=== PATIENT | female | born 1960 | race Caucasian/White ===

== ENCOUNTER 2018-06-06 20:19 | Emergency (ER) | payer OTHER, SELFPAY ==
--- NOTE | 2018-06-06 20:28 | ED_ITS ---
HPI - Syncope General Chief Complaint: Syncope Stated Complaint: Syncope Time Seen by Provider: 06/06/18 20:21 Source: patient and EMS Mode of arrival: EMS Limitations: no limitations History of Present Illness HPI narrative: 58-year-old healthy female presents by EMS for evaluation of 2 syncopal episodes today. Under both circumstances it was and changing position from a seated to standing. On arrival EMS found her blood pressure to be 100/ 60 while seated with a dropped to 70/48 while standing, patient became quite symptomatic. She denies any recent illness such as nausea, vomiting or diarrhea. She denies runny nose, sore throat or cough. She has had no fever or chills. She denies abdominal pain or any vaginal bleeding. She has no new medications, herbal supplements or dietary change. She denies recent travel, history of blood clot or history of cancer. She denies any unplanned weight loss. She drinks a significant amount of caffeine and was drinking alcohol with friends today, she states she tries to drink enough water and normally does. MD complaint: loss of consciousness Onset (ago): minute(s) Prodromal symptoms: vision changes and lightheaded Witnessed: yes - by bystander Context: standing up Injuries sustained associated with event: none Current symptoms: none Treatments prior to arrival: IV fluids Review of Systems Review of Systems All systems reviewed & are unremarkable except as noted in HPI and below Constitutional Denies chills, Denies fever(s), Denies lethargy and Denies weakness Eyes Denies change in vision, Denies eye discharge, Denies irritation and Denies loss of vision ENT Ears, Nose, Mouth, and Throat: Denies change in voice, Denies neck pain and Denies sore throat Cardiovascular Denies chest pain, Reports syncope, Denies irregular heart rhythm, Denies lightheadedness, Denies palpitations, Denies dyspnea, Denies dyspnea on exertion and Denies orthopnea Respiratory Denies cough, Denies dyspnea, Denies dyspnea on exertion and Denies wheezing Gastrointestinal Gastrointestinal: Denies abdominal pain, Denies change in bowel habits, Denies diarrhea, Denies nausea and Denies vomiting Genitourinary Denies hematuria, Denies flank pain, Denies urinary incontinence and Denies urinary urgency Musculoskeletal Denies neck pain Integumentary/Breasts Denies pruritus, Denies erythema, Denies rash and Denies wounds Neurologic Denies confusion, Reports syncope, Denies loss of vision and Denies weakness Psychiatric Denies anxiety, Denies confusion, Denies depression, Denies homicidal ideation and Denies suicidal ideation Endocrine Denies palpitations Hematologic/Lymphatic Denies easy bruising Allergic/Immunologic Denies wheezing PFSH Social History Smoking Status: Never smoker alcohol intake: current Exam Narrative Exam Narrative: Pleasant 58-year-old female resting comfortably Initial Vital Signs Initial Vital Signs: Vital Signs Temperature 97.9 F 06/06/18 20:31 Pulse Rate 72 06/06/18 20:31 Respiratory Rate 18 06/06/18 20:31 Blood Pressure 126/69 H 06/06/18 20:31 Pulse Oximetry 98 06/06/18 20:31 Const General: cooperative and well developed Nutritional Appearance: well nourished Orientation: alert, awake, oriented x3 and not confused HENMT Head: normocephalic and atraumatic Ears: external ears normal and TM's normal bilaterally Nose: external nose normal and No nasal discharge Face and sinus: sinuses nontender, face symmetric, no sinus tenderness and No dry mucous membranes Mouth: oral mucosae normal and moist mucous membranes Teeth and gingiva: dentition normal Throat: tonsils normal and uvula midline Eyes General: appearance normal, both eyes and all related structures Eyelids: eyelids normal Conjunctivae: conjunctivae normal Sclera: sclerae normal Pupils: PERRL EOM: EOM intact bilaterally Neck Neck: normal visual inspection, trachea midline, No lymphadenopathy, No midline deformity and No JVD Lymphatic: No lymphedema Chest Chest: normal inspection of the chest Resp Effort & Inspection: normal respiratory effort, able to speak in complete sentences, no respiratory distress and no use of accessory muscles Auscultation: clear to auscultation bilaterally, no rales, no rhonchi and no wheezes Cardio Rate: regular rate Rhythm: regular rhythm Heart Sounds: no click, no gallops, no murmurs and no rubs Pulses: normal peripheral pulses GI Inspection: non-distended Palpation: soft, no hepatosplenomegaly, No guarding, No pulsatile mass and No tender Auscultation: normal bowel sounds Back/Spine/Pelvis Back: No CVA tenderness Cervical Spine: cervical ROM normal and No pain with cervical ROM Thoracic/Lumbar Spine: thoracic and lumbar spine normal to inspection Skin General: no rashes or lesions noted, No jaundice and No petechiae Neuro General: alert, oriented x3, gait normal and no focal motor deficits Speech: speech normal Extrem General: full ROM, no clubbing, cyanosis or edema, no pedal edema and no calf tenderness Psych Appearance: well kempt Mental Status: mental status grossly normal Attitude: cooperative Thought Content: normal and suicidality Judgment: judgment good Course Orders Ordered: ED Orders 06/06/18 20:15 Complete Blood Count AUTO DIFF Stat Comprehensive Metabolic Panel Stat Ethanol (ETOH) Stat Troponin & CK Cardiac Panel Stat 06/06/18 20:25 EKG-12 Lead Stat Discontinued Medications Sodium Chloride (Normal Saline 0.9%) 1,000 mls @ 1,000 mls/hr IV BOLUS ONE Stop: 06/06/18 21:24 Last Infusion: 06/06/18 23:00 Dose: 0 mls/hr Admin: 06/06/18 21:15 Dose: 1,000 mls/hr Vital Signs - 8 hr 06/06/18 21:44 06/06/18 22:50 06/06/18 22:51 Pulse Rate 78 90 87 Respiratory Rate 18 Blood Pressure [Left Arm] 114/60 124/60 H 136/73 H Pulse Oximetry 97 06/06/18 23:12 Pulse Rate 94 H Respiratory Rate 15 Blood Pressure [Left Arm] 123/63 H Pulse Oximetry 98 MDM - Syncope Differential Diagnosis Likely syncope due to orthostatic hypotension, vasovagal syncope, complete atrioventricular block, pulmonary embolism and dehydration Lab Data Attestation: I reviewed the patient's lab results. Result diagrams: 06/06/18 20:15 06/06/18 20:15 Lab Results 06/06/18 06/06/18 Range/Units 20:15 20:15 WBC 7.8 (4.5-11.0) X10^3/uL RBC 4.32 (4.0-5.2) X10^6/uL Hgb 13.2 (12.0-16.0) g/dL Hct 38.3 (36-46) % MCV 88.5 (80-100) fL MCH 30.6 (26-34) PG MCHC 34.6 (30-36) % RDW 13.4 (11.6-14.8) % Plt Count 365 (150-400) X10^3/uL Neut % (Auto) 41.4 L (50-75) % Lymph % (Auto) 46.0 H (25-40) % [place] % (Auto) 7.8 (3-14) % Eos % (Auto) 4.3 H (2-4) % Baso % (Auto) 0.5 (0-2) % Neut # (Auto) 3200 (2132-4574) /uL Sodium 138 (137-145) mmol/L Potassium 3.3 L (3.4-5.1) mmol/L Chloride 100 (98-107) mmol/L Carbon Dioxide 24 (22-32) mmol/L BUN 15 (7-17) mg/dL Creatinine 0.90 (0.52-1.04) mg/dL Estimated GFR > 60.0 (>60) mL/min BUN/Creatinine Ratio 16.7 (6-22) Glucose 98 (70-100) mg/dL Calcium 9.6 (8.4-10.2) mg/dL Total Bilirubin 0.4 (0.2-1.3) mg/dL AST 41 H (14-36) IU/L ALT 36 (9-52) IU/L Alkaline Phosphatase 66 (38-126) U/L Total Creatine Kinase 117 (30-135) U/L CK-MB (CK-2) 0.79 (<2.37) ng/mL CK-MB (CK-2) Rel Index 0.7 L (1.5-5.0) % Troponin I < 0.012 (0.01-0.034) ng/mL Total Protein 7.5 (6.3-8.2) g/dL Albumin 4.8 (3.5-5.0) g/dL Globulin 2.7 (1.7-4.1) g/dL Albumin/Globulin Ratio 1.8 (1.0-2.8) Ethyl Alcohol 21 mg/dL [facility] Narrative Medical decision making narrative: 58-year-old female presents with a syncopal episode in the setting of a low blood pressure with change in position. She patient was given a few L of fluid able to ambulate through the department without any difficulty and remains asymptomatic. Discharge Plan Departure Patient Disposition: Home, Self-Care Clinical Impression: Syncope due to orthostatic hypotension, Dehydration Discharge Date/Time: 06/06/18 23:51 Interventions: ED Discharge Assessment Last Done: 06/06/18 23:49 Instructions: DI for Syncope in Adults (Fainting) Activity Restrictions/Additional Instructions: *You have been diagnosed with [ fainting ] *What to do: *Take medications as directed *Follow up with your primary care provider in 2-3 days, call for an appointment. Let them know you were seen in the Emergency Department and that we ask that you be seen in follow up *Return to ER if you should have any new, worsening or concerning symptoms , such as [ recurrence of symptoms, chest pain, shortness of breath or other bothersome symptoms] Referrals: Silverio Garcia MD [Primary Care Provider] - William Oliveira MD [Physician] - Tonja Taveras MD [Physician] - Christina Dobson MD [Physician] -
[2018-06-06 20:31] VITALS: BP 126/69; PULSE 72; RESP 18; TEMP 36.6; O2SAT 98; BMI 22.3
[2018-06-06 20:32] LABS: Add Manual Diff / Slide Review NO; Basophils Percent Auto 0.5 % (0-2); Eosinophils Percent Auto 4.3 % (2-4); Hematocrit 38.3 % (36-46); Hemoglobin 13.2 g/dL (12.0-16.0); Mean Corpuscular HGB Conc 34.6 % (30-36); Mean Corpuscular Hemoglobin 30.6 PG (26-34); Mean Corpuscular Volume 88.5 fL (80-100); Monocytes Percent Auto 7.8 % (3-14); Neutrophils Absolute Auto 3200 /uL (3000-5900); Neutrophils Percent Auto 41.4 % (50-75); Platelet Count 365 X10^3/uL (150-400); Red Blood Cell Count 4.32 X10^6/uL (4.0-5.2); Red Cell Distribution Width 13.4 % (11.6-14.8); White Blood Cell Count 7.8 X10^3/uL (4.5-11.0)
[2018-06-06 20:53] LABS: Alanine Aminotransferase 36 IU/L (9-52); Albumin 4.8 g/dL (3.5-5.0); Albumin Globulin Ratio 1.8 (1.0-2.8); Alkaline Phosphatase 66 U/L (38-126); Aspartate Aminotransferase 41 IU/L (14-36); BUN Creatinine Ratio 16.7 (6-22); Bilirubin Total 0.4 mg/dL (0.2-1.3); Blood Urea Nitrogen 15 mg/dL (7-17); Calcium 9.6 mg/dL (8.4-10.2); Carbon Dioxide 24 mmol/L (22-32); Chloride 100 mmol/L (98-107); Creatine Kinase 117 U/L (30-135); Estimated Glomerular Filt Rate > 60.0 mL/min (>60); Globulin 2.7 g/dL (1.7-4.1); Glucose 98 mg/dL (70-100); HEMOLYSIS < 15 (0-50); Potassium 3.3 mmol/L (3.4-5.1); Sodium 138 mmol/L (137-145); Total Protein 7.5 g/dL (6.3-8.2)
[2018-06-06 21:02] LABS: Ethanol (ETOH) 21 mg/dL
[2018-06-06 21:06] LABS: Troponin I < 0.012 ng/mL (0.01-0.034)
[2018-06-06 21:08] LABS: CKMB % Relative Index 0.7 % (1.5-5.0); Creatine Kinase MB 0.79 ng/mL (<2.37)
[2018-06-06] MEDS: SODIUM CHLORIDE 0.9% 1,000 ML 1000 ML IV (21:15)
[2018-06-06 21:44] VITALS: BP 114/60; PULSE 78; RESP 18; O2SAT 97
[2018-06-06 22:50] VITALS: BP 124/60; PULSE 90
[2018-06-06 22:51] VITALS: BP 133/69; BP 136/73; PULSE 87; PULSE 89
[2018-06-06 23:12] VITALS: BP 123/63; PULSE 94; RESP 15; O2SAT 98
== END 2018-06-06 23:51 | disposition home or self-care (01) ==
PROVIDERS: Emergency Provider Emergency Medicine; Family Provider Nurse Practitioner Family; PCP Family Medicine
DX: I95.1 Orthostatic hypotension (principal); E86.0 Dehydration
CPT/HCPCS: 80053; 80320; 82550; 82553; 84484; 85025; 93005; 96360; 96361; 99283; 99284

== ENCOUNTER → 2018-06-10 16:41 | Outpatient (CLI) | payer OTHER, SELFPAY ==
--- NOTE | 2018-06-10 16:45 | DI.RAD.S_ITS ---
PROCEDURE: XR CERVICAL SPINE 2V OR 3V INDICATIONS: NECK PAIN TECHNIQUE: 3 view(s) of the cervical spine were acquired. COMPARISON: None. FINDINGS: Bones: No fractures or dislocations to the C7 level. The lateral masses of C1 appear intact on the odontoid view. No suspicious bony lesions. There is multilevel disc narrowing C3-T1. Atrophic changes in the lateral masses and uncovertebral joints bilaterally below C3. Soft tissues: No prevertebral soft tissue swelling. IMPRESSION: 1. Normal lordosis. Multilevel disc degeneration and bony spondylosis. Dictated by: Del Pal M.D. on 06/11/2018 at 8:34 Approved by: Del Pal M.D. on 06/11/2018 at 8:35
== END ==
PROVIDERS: PCP Family Medicine; Visit Provider Nurse Practitioner Family
DX: M50.31 Other cervical disc degeneration, high cervical region (principal); M47.812 Spondylosis without myelopathy or radiculopathy, cervical region
CPT/HCPCS: 72040

== ENCOUNTER → 2019-02-10 15:20 | Outpatient (CLI) | payer OTHER, SELFPAY ==
--- NOTE | 2019-02-10 | DI.MG.S_ITS ---
BILATERAL DIGITAL SCREENING MAMMOGRAM 3D/2D WITH CAD: 02/10/2019 CLINICAL: Routine screening. Family history of breast cancer. Comparison is made to exams dated: 12/18/2017 mammogram, 12/10/2016 mammogram, and 01/04/2015 mammogram - [facility]. The tissue of both breasts is heterogeneously dense. This may lower the sensitivity of mammography. Current study was also evaluated with a Computer Aided Detection (CAD) system. No significant masses, calcifications, or other findings are seen in either breast. There has been no significant interval change. IMPRESSION: NEGATIVE There is no mammographic evidence of malignancy. A 1 year screening mammogram is recommended. This exam was interpreted at Station ID: [id number]. NOTE: For mammograms, a report in lay terms will be sent to the patient. Approximately 15% of breast malignancies will not be visualized mammographically. In the management of a palpable breast mass, a negative mammogram must not discourage biopsy of a clinically suspicious lesion. Electronically Signed By: Laurent marshall/vishal:02/10/2019 18:56:57 letter sent: Normal Exam ACR BI-RADS Category 1: Negative [id number]
== END ==
PROVIDERS: PCP Nurse Practitioner Family; Visit Provider Nurse Practitioner Family
DX: Z12.31 Encounter for screening mammogram for malignant neoplasm of breast (principal); Z80.3 Family history of malignant neoplasm of breast
CPT/HCPCS: 77063; 77067

== ENCOUNTER → 2019-05-18 14:55 | Outpatient (CLI) | payer OTHER, SELFPAY ==
--- NOTE | 2019-05-18 | DI.RAD.S_ITS ---
PROCEDURE: XR CERVICAL SPINE 2V OR 3V INDICATIONS: NECK PAIN TECHNIQUE: 3 view(s) of the cervical spine were acquired. COMPARISON: [facility], CR, XR CERVICAL SPINE 2V OR 3V, 06/10/2018, 16:35. FINDINGS: Bones: No fractures or dislocations to the T1 level. The lateral masses of C1 appear intact on the odontoid view. No suspicious bony lesions. Multilevel degenerative endplate sclerosis and spurring. Diffuse facet arthropathy. Straightening of the normal lordotic curvature. Diffuse mild to moderate narrowing of the cervical disc spaces. Soft tissues: No prevertebral soft tissue swelling. IMPRESSION: Diffuse [id number] cervical spondylosis grossly unchanged since 06/10/18. Dictated by: Ramírez Garg M.D. on 05/18/2019 at 16:08 Approved by: Ramírez Garg M.D. on 05/18/2019 at 16:09
== END ==
PROVIDERS: PCP Nurse Practitioner Family; Visit Provider Family Medicine
DX: M47.892 Other spondylosis, cervical region (principal)
CPT/HCPCS: 72040

== ENCOUNTER → 2019-09-29 13:13 | Outpatient (CLI) | payer OTHER, SELFPAY ==
--- NOTE | 2019-09-29 | DI.CT.S_ITS ---
PROCEDURE: CT HEAD/BRAIN WO CON INDICATIONS: CONCUSSION TECHNIQUE: Noncontrast 4.5 mm thick angled axial sections acquired from the foramen magnum to the vertex, with coronal and sagittal reformats. For radiation dose reduction, the following was used: automated exposure control, adjustment of mA and/or kV according to patient size. COMPARISON: [facility], MR, BRAIN WITH AND WITHOUT CONTRAS, 08/25/2010, 7:21. [facility], CT, SINUS SCREEN WO CONTRAST, 09/02/2015, 10:13. FINDINGS: Image quality: Excellent. CSF spaces: Basal cisterns are patent. No extra-axial fluid collections. Ventricles are normal in size and shape. Brain: No midline shift. No intracranial masses or hemorrhage. Haddad-white matter interface is normal. Skull and face: Calvarium and visualized facial bones are intact, without suspicious lesions. Sinuses: Visualized sinuses and mastoids are clear. IMPRESSION: 1. No acute intracranial process. Dictated by: Jennifer Maria M.D. on 09/29/2019 at 16:08 Approved by: Jennifer Maria M.D. on 09/29/2019 at 16:11
== END ==
PROVIDERS: PCP Family Medicine; Visit Provider Family Medicine
DX: S06.0X0A Concussion without loss of consciousness, initial encounter (principal); X58.XXXA Exposure to other specified factors, initial encounter
CPT/HCPCS: 70450